=== PATIENT | female | born 1980 | race Two or more races ===

== ENCOUNTER 2018-09-06 06:16 | Emergency (ER) | payer BC, MEDICAID ==
[~2018-09-06] VITALS: Ht 157.5 cm; Wt 119.3 kg
[2018-09-06 06:35] VITALS: BP 120/64
[2018-09-06] MEDS ORDERED: cefTRIAXone 1GM/50ML D5W 50 ML IV ONE (07:30)
[2018-09-06] MEDS ORDERED: CLINDAMYCIN 900MG IV 50 ML IV ONE (07:30)
[2018-09-06] MEDS ORDERED: KETOROLAC TROMETH 30 MG/ML 1ML VIAL IV ONE (07:30)
== END 2018-09-06 09:33 | disposition home or self-care (01) ==
LOC: ER 06:20
DX: K04.7 Periapical abscess without sinus (principal); J45.909 Unspecified asthma, uncomplicated
CPT/HCPCS: 41800; 96365; 96368; 96375; 99283; J0696; J1885; J3490